=== PATIENT | male | born 1955 | race Caucasian/White ===

== ENCOUNTER 2019-05-06 14:51 | Emergency (ER) | payer OTHER ==
[~2019-05-06] VITALS: Ht 162.6 cm; Wt 113.4 kg
[2019-05-06] MEDS ORDERED: GABA400 PO (15:45)
[2019-05-06] MEDS ORDERED: BUSP10 PO (15:45)
[2019-05-06] MEDS ORDERED: AMLO10 PO (15:45)
[2019-05-06] MEDS ORDERED: PRAZ2 PO (15:46)
[2019-05-06] MEDS ORDERED: MELO7.5 PO (15:46)
[2019-05-06] MEDS ORDERED: HYDR1TAB94 PO (15:46)
[2019-05-06] MEDS ORDERED: TRAZ100 PO (15:47)
[2019-05-06] MEDS ORDERED: SERT100 PO (15:47)
== END 2019-05-06 17:14 | disposition home or self-care (01) ==
LOC: ER 14:51
DX: M54.40 Lumbago with sciatica, unspecified side (principal); F32.9 Major depressive disorder, single episode, unspecified; I10 Essential (primary) hypertension; M19.90 Unspecified osteoarthritis, unspecified site; G47.30 Sleep apnea, unspecified; G47.00 Insomnia, unspecified; Z86.79 Personal history of other diseases of the circulatory system; Z91.030 Bee allergy status; Z91.038 Other insect allergy status
CPT/HCPCS: 93005; 93010; 96372; 99283-25; J1885

== ENCOUNTER 2020-03-28 23:24 | Emergency (ER) | payer OTHER ==
[~2020-03-28] VITALS: Ht 162.6 cm; Wt 117.9 kg
[~2020-03-28 23:24] MED LIST: AMLO10 PO; BUSP10 PO; GABA400 PO; HYDR1TAB94 PO; MELO7.5 PO; PRAZ2 PO; SERT100 PO; TRAZ100 PO
== END 2020-03-29 01:20 | disposition left against medical advice (07) ==
LOC: ER 23:24
DX: Z53.21 Procedure and treatment not carried out due to patient leaving prior to being seen by health care provider (principal)

== ENCOUNTER 2022-03-06 03:44 | Emergency (ER) | payer OTHER ==
[~2022-03-06] VITALS: Ht 162.6 cm; Wt 127.0 kg
[2022-03-06] MEDS ORDERED: POTA10T PO (04:08)
[2022-03-06] MEDS ORDERED: PRAZ2 PO (04:09)
[2022-03-06] MEDS ORDERED: CYCL10 PO (04:09)
[2022-03-06] MEDS ORDERED: GABA400 PO (04:09)
[2022-03-06] MEDS ORDERED: FURO20 PO (04:10)
== END 2022-03-06 04:41 | disposition home or self-care (01) ==
LOC: ER 03:44
DX: R04.0 Epistaxis (principal); I87.8 Other specified disorders of veins; I10 Essential (primary) hypertension; Z88.8 Allergy status to other drugs, medicaments and biological substances; Z91.030 Bee allergy status; Z79.899 Other long term (current) drug therapy
CPT/HCPCS: A9270

== ENCOUNTER 2022-07-17 18:28 | Inpatient (IN) | payer OTHER ==
[~2022-07-17] VITALS: Ht 162.6 cm; Wt 147.9 kg
[~2022-07-17 18:28] MED LIST changes: +CYCL10 PO; +FURO20 PO; +POTA10T PO
[2022-07-17 19:04] LABS: BASOPHILS ABSOLUTE AUTO 0.04 K/mm3 (0.00-0.23); BASOPHILS PERCENT AUTO 0 % (0-2); EOSINOPHILS ABSOLUTE AUTO 0.17 K/mm3 (0.00-0.68); EOSINOPHILS PERCENT AUTO 2 % (0-6); Hematocrit 41.8 % (37.0-53.0); Hemoglobin 13.6 g/dL (13.5-17.5); IMMATURE GRAN ABSOLUTE AUTO 0.02 K/mm3 (0.00-0.10); IMMATURE GRAN PERCENT AUTO 0 % (0-1); LYMPHOCYTES ABSOLUTE AUTO 1.38 K/mm3 (0.84-5.20); LYMPHOCYTES PERCENT AUTO 15 % (21-46); MONOCYTES ABSOLUTE AUTO 0.95 K/mm3 (0.16-1.47); MONOCYTES PERCENT AUTO 10 % (4-13); Mean Corpuscular HGB 29.8 pg (26.0-34.0); Mean Corpuscular HGB Conc 32.5 g/dL (31.5-36.5); Mean Corpuscular Volume 92 fL (80-100); Mean Platelet Volume 11.7 fL (9.1-12.4); NEUTROPHILS ABSOLUTE AUTO 6.62 K/mm3 (1.96-9.15); NEUTROPHILS PERCENT AUTO 72 % (41-73); Platelet Count 158 K/mm3 (150-400); RDW Coefficient Variation 14.4 % (11.7-14.2); Red Blood Cell Count 4.56 M/mm3 (4.30-5.90); White Blood Cell Count 9.18 K/mm3 (4.00-11.30)
[2022-07-17 19:21] LABS: Albumin, Blood 3.2 g/dL (3.4-5.0); Albumin/Globulin Ratio 0.8 (0.8-1.8); Bilirubin, Total 0.8 mg/dL (0.1-1.0); Bun/Creatinine Ratio 16.6 (12.0-20.0); Calcium, Blood 9.2 mg/dL (8.5-10.1); Creatinine, Blood 0.78 mg/dL (0.60-1.20); Globulin, Blood 4.1 g/dL (2.2-4.0); Potassium, Blood 4.5 mmol/L (3.5-5.5); Total Protein, Blood 7.3 g/dL (6.4-8.2)
[2022-07-17 21:49] LABS: Influenza A, PCR NEGATIVE (NEGATIVE); Influenza B, PCR NEGATIVE (NEGATIVE); Resp Syncytial Virus, PCR NEGATIVE (NEGATIVE); SARS-Cov-2 (COVID-19) PCR, MMC NEGATIVE (NEGATIVE)
--- NOTE | 2022-07-18 06:06 | NUR ---
SHIFT SUMMARY A&O - NEW ADMISSION IN NIGHT- PT ANXIOUS AT ADMISSION- PT WAS ON 3L NC WHICH HIS HOME O2- RT WORKED WITH GETTING A GOOD SEAL ON CPAP- PT CURRENTLY ON 13L FED INTO THE CPAP- PT ON CONTINOUS PULSE OX- PT SATS STAY WNL WITH NC WHEN AWAKE- PT ABLE TO USE URINAL IN BED OR SET UP TO SIDE OF BED TO USE URINAL-
[2022-07-18 07:05] LABS: BASOPHILS ABSOLUTE AUTO 0.01 K/mm3 (0.00-0.23); BASOPHILS PERCENT AUTO 0 % (0-2); EOSINOPHILS PERCENT AUTO 0 % (0-6); Hematocrit 44.1 % (37.0-53.0); Hemoglobin 13.8 g/dL (13.5-17.5); IMMATURE GRAN ABSOLUTE AUTO 0.02 K/mm3 (0.00-0.10); IMMATURE GRAN PERCENT AUTO 0 % (0-1); LYMPHOCYTES ABSOLUTE AUTO 0.61 K/mm3 (0.84-5.20); LYMPHOCYTES PERCENT AUTO 12 % (21-46); MONOCYTES ABSOLUTE AUTO 0.11 K/mm3 (0.16-1.47); MONOCYTES PERCENT AUTO 2 % (4-13); Mean Corpuscular HGB 28.6 pg (26.0-34.0); Mean Corpuscular HGB Conc 31.3 g/dL (31.5-36.5); Mean Corpuscular Volume 92 fL (80-100); Mean Platelet Volume 11.8 fL (9.1-12.4); NEUTROPHILS ABSOLUTE AUTO 4.52 K/mm3 (1.96-9.15); NEUTROPHILS PERCENT AUTO 86 % (41-73); Platelet Count 175 K/mm3 (150-400); RDW Coefficient Variation 14.3 % (11.7-14.2); RDW Standard Deviation 47.8 fL (35.1-46.3); Red Blood Cell Count 4.82 M/mm3 (4.30-5.90); White Blood Cell Count 5.27 K/mm3 (4.00-11.30)
[2022-07-18 07:28] LABS: Albumin, Blood 2.8 g/dL (3.4-5.0); Albumin/Globulin Ratio 0.7 (0.8-1.8); Bilirubin, Total 0.7 mg/dL (0.1-1.0); Calcium, Blood 9.1 mg/dL (8.5-10.1); Creatinine, Blood 0.82 mg/dL (0.60-1.20); Globulin, Blood 4.1 g/dL (2.2-4.0); Potassium, Blood 4.5 mmol/L (3.5-5.5); Total Protein, Blood 6.9 g/dL (6.4-8.2)
--- NOTE | 2022-07-18 18:52 | NUR ---
END OF SHIFT SUMMARY: PATIENT REPORTED LOWER BACK AND HIP PAIN. PATIENT PROVIDED WITH RECLINER. PATIENT DENIED NEED FOR FURTHER INTERVENTION. PATIENT REPORTED THAT HIS BREATHING WAS GREATLY IMPROVED COMPARED TO YESTERDAY. PATIENT ON 3-4L VIA NC. SPO2 FROM 90-94%. PATIENT DENIED SHORTNESS OF BREATH AT REST. MINIMAL SHORTNESS OF BREATH NOTED WITH AMBULATION. PATIENT UP TO THE RECLINER AND SHOWER TODAY. PATIENT CONTINUED TO PRODUCE CLEAR, YELLOW URINE THROUGHOUT THE SHIFT.
[2022-07-19 04:40] LABS: Base Excess Venous 16.8 mmol/L; Bicarbonate Venous 37.4 mmol/L (24.0-30.0); PCO2 Venous 67.9 mmHg (38-42)
[2022-07-19 04:58] LABS: Albumin, Blood 2.8 g/dL (3.4-5.0); Albumin/Globulin Ratio 0.7 (0.8-1.8); Bilirubin, Total 0.3 mg/dL (0.1-1.0); Bun/Creatinine Ratio 33.3 (12.0-20.0); Calcium, Blood 8.8 mg/dL (8.5-10.1); Creatinine, Blood 0.96 mg/dL (0.60-1.20); Globulin, Blood 3.9 g/dL (2.2-4.0); Magnesium, Blood 2.1 mg/dL (1.6-2.4); Potassium, Blood 4.6 mmol/L (3.5-5.5); Total Protein, Blood 6.7 g/dL (6.4-8.2)
--- NOTE | 2022-07-19 05:09 | NUR ---
SHIFT SUMMARY PT A&O X 4, PT UP TO CHAIR ALL NIGHT, PT REFUSED WITH RT TO LAY IN BED, PT REPORTS HE IS MORE COMFORTABLE SITTING UP BECAUSE OF HIS SIZE- PT SLEPT IN RECLINER WITH BILAT LEGS ELEVATED- PT ON 4L NC, SATS WNL PT USES URINAL WITHOUT PROBLEMS
--- NOTE | 2022-07-19 16:28 | NUR ---
DAYSHIFT SUMMARY Patient OOB sitting in recliner all day, declined to go on walk w/ staff. Saturations stable on 4lpm oxygen NC, continuous pulse ox ordered. Occasional desats, patients not wearing NC. Patient upset, stated he was told he has a poor prognosis, family calling wanting updates on his prognosis. MD told RN that patient needed to needed to use CPAP, take medications, and lose weight to control CHF s/sx and improve quality of life. Patient receptive to education, but then continued to take NC off. Flight Engineer Manager consulted for patient education. Patient stated he wanted RN to provide education on CPAP, medications, and diet to prepare for discharge. No other concerns at this time, will continue plan of care.
--- NOTE | 2022-07-19 17:45 | NUR ---
Pt. is sitting up in a chair and welcomes my visit. Pt. is unsettled by the impact of his breathing condition, and verbalized that he has considered at times giving up. Pt.is quick to verbalize that he feels better at present. Explore matters of zahraa and belief. Pt. displays evidence of trust. Prayed with Pt. Pt. verbalized gratitude for the spiritual care visit.
[2022-07-20 04:30] LABS: Base Excess Venous 21.7 mmol/L; Bicarbonate Venous 41.9 mmol/L (24.0-30.0); PCO2 Venous 70.3 mmHg (38-42); pH Blood Venous 7.43 (7.34-7.37)
[2022-07-20 05:03] LABS: Bun/Creatinine Ratio 31.4 (12.0-20.0); Calcium, Blood 9.1 mg/dL (8.5-10.1); Creatinine, Blood 0.96 mg/dL (0.60-1.20); Potassium, Blood 3.9 mmol/L (3.5-5.5)
--- NOTE | 2022-07-20 06:14 | NUR ---
Shift Summary Pt mentioned tonight that it's too difficult to track his medications so he takes them all at night, will pass this info to day nurse. Pt on 3-4 L O2 NC to keep O2>90%. He tried to sleep with CPAP mask tonight, O2 kept desaturating down to low 80's to mid 70's and then back up to 88-90. This cycle repeated all through the night. Called RT for a consult, checked mask fit and turned up O2 without any improvement. Once he woke up in the AM and switched to NC his O2 sat > 92% even while dozing off. Current sat 93% on 3L. No acute events, no C/O pain, pleasant and cooperative with care.
--- NOTE | 2022-07-20 18:34 | NUR ---
SHIFT SUMMARY: NO ACUTE EVENTS. TELEMETRY SHOWED SR-ST 90-104 WITH FREQUENT PVC'S, USUALLY WHEN AMBULATING (HR DOCUMENTED 40-50'S PER OXIMETRY MONITOR, BUT SINCE HR IS IRREGULAR, NOT PICKING UP ALL BEATS). BLE EDEMATOUS AND TIGHT. O2 @ 3 L/MIN NC (BASELINE) WITH BIPAP WHILE SLEEPING. USING URINAL INDEPENDENTLY, GETTING UP TO BR WITH 1 PERSON ASSIST AND FWW, GAIT UNSTEADY. DRESSING CHANGED ON VENOUS ULCER ON L POSTERIOR CALF. WORKED WITH PHYSICAL THERAPY. SAT UP IN RECLINER ALL SHIFT.
[2022-07-21 04:44] LABS: PCO2 Venous 59.8 mmHg (38-42); pH Blood Venous 7.48 (7.34-7.37)
[2022-07-21 04:45] LABS: Base Excess Venous 20.7 mmol/L; Bicarbonate Venous 41.3 mmol/L (24.0-30.0)
[2022-07-21 05:35] LABS: Bun/Creatinine Ratio 33.7 (12.0-20.0); Calcium, Blood 8.4 mg/dL (8.5-10.1); Creatinine, Blood 0.8 mg/dL (0.60-1.20); Potassium, Blood 3.9 mmol/L (3.5-5.5)
--- NOTE | 2022-07-21 07:16 | NUR ---
Shift Summary Pt wore CPAP tonight and had an anxiety attack early in the evening feeling like he was choking due to the mask. I called Dr. Portillo who ordered PRN Ativan, but when I went back into the room pt was asleep with CPAP mask on. Pt continued to have episodes of desaturation, I called RT who was able to adjust the mask and reduce leakage. Desaturations still continued t/o the night but they were less frequent. I did need to raise the CPAP O2 to 6L to reduce frequency of desaturations. Pt states his mask at home is terrible, passed this info to day nurse because pt needs OUTPT CPAP. No C/O pain or discomfort, pt slept well T/O the night. No acute events, pleasant and cooperative with care.
--- NOTE | 2022-07-21 17:34 | NUR ---
SHIFT SUMMARY NO ACUTE CHANGES DURING SHIFT. PT ALERT AND ORIENTED, CALLS APPROPRIATELY. PT IN CHAIR THROUGHOUT DAY. PT AMBULATED WITH FWW AROUND UNIT TODAY. PT REMAINS ON 2-3L NC. DRESSING IN PLACE TO LLE, CDI. WILL CONTINUE TO MONITOR. CALL LIGHT WITHIN REACH.
[2022-07-22 04:48] LABS: Base Excess Venous 18.6 mmol/L; Bicarbonate Venous 39.5 mmol/L (24.0-30.0); PCO2 Venous 58.9 mmHg (38-42); pH Blood Venous 7.47 (7.34-7.37)
--- NOTE | 2022-07-22 05:12 | NUR ---
SUMMARY: PATIENT ON BIPAP MOST OF NIGHT. PATIENT AMBULATES ONE PERSON ASSIST FROM BED TO CHAIR. VOIDS IN URINAL. ON 1-2L NC WHILE OFF OF BIPAP. PATIENT HAD STUFFY/ BLOODY NOSE WHILE WEARING BIPAP. GAVE PRN NASAL SPRAYS FOR CONGESTION AND MOISTURE. BIPAP MASK HAD A LEAK OVERNIGHT RT CAME TO BEDSIDE AND APPLIED A GEL BARRIER FOR A BETTER SEAL ON MASK. PATIENT ON CONT PULSE OX MONITOR. RT INCREASED O2 IN BIPAP TO 8L PATIENT WAS DESATTING WHILE SLEEPING. PATIENT VERBALIZED THAT HE DOESN'T KNOW HOW WELL HE WILL MANAGE A BIPAP AT HOME WHILE NURSE AND RT WERE TROUBLE SHOOTING LEAK IN BIPAP MASK. ENCOURAGED PATIENT TO ENSURE HE HAS A GOOD SEAL ON MASK, LISTEN FOR LOUDER BLOWING SOUNDS OR LEAKS WITH AIR BLOWING IN HIS EYES.
[2022-07-22 05:59] LABS: Bun/Creatinine Ratio 25.2 (12.0-20.0); Creatinine, Blood 0.75 mg/dL (0.60-1.20); Potassium, Blood 3.8 mmol/L (3.5-5.5)
--- NOTE | 2022-07-22 17:17 | NUR ---
SHIFT SUMMARY NO ACUTE CHANGES DURING SHIFT. PT ALERT AND ORIENTED, CALLS APPROPRIATELY. PT REMAINS ON 2L, SPO2 >90%. PT MEDICATED WITH PRN PAIN MEDS X 2, PT STATES MEDICATION EFFECTIVE. PT UP TO CHAIR THROUGHOUT DAY. WILL CONTINUE TO MONITOR. CALL LIGHT WITHIN REACH
--- NOTE | 2022-07-23 05:32 | NUR ---
SUMMARY: PATIENT ALERT AND ORIENTED X4. VSS. PATIENT WORE BIPAP OVERNIGHT TITRATED O2 TO KEEP SATS OVER 88%. PATIENT DOES FINE ON NC 2L WHILE AWAKE BUT NEEDS BIPAP TO SLEEP, TONIGHT O2 BLEED IN WAS UP TO 11L TO KEEP O2 IN HIGH 80S. PATIENT TAKES MASK OFF FREQUENTLY THROUGHOUT NIGHT BECAUSE HE FEELS ANXIOUS WITH THE PRESSURE, HE WILL SAY HE NEEDS A BREAK AND PUT HIS NC ON BUT WILL THEN FALL BACK ASLEEP AND NOT PUT BIPAP BACK ON. EDUCATION PROVIDED AND FREQUENT ROUNDING TO ENSURE COMPLIANCE WITH BIPAP. PRN PAIN MEDS GIVEN. PATIENT SLEPT IN CHAIR TO MAKE HIM MORE COMFORTABLE HE HAS PROBLEMS GETTING UP TO THE EDGE OF THE BED IN TIME TO USE THE URINAL AT NIGHT.
--- NOTE | 2022-07-23 17:04 | NUR ---
SHIFT SUMMARY; PATIENT VERY ANXIOUS THROUGHOUT DAY. STARTED PAITENT ON BUSPAR 5MG AND ALSO ORDER FOR 0.5MG ATIVAN ONE TIME ORDER. MARISOL COMPLAINS OF ANXIETY CAUSED BY THE BEEPING OF THE LOW SAT MONITOR. BCT EDUCATED ON REASON FOR BEEPING. HE VERBALIZED UNDERSTANDING HOWEVER PATIENT IS NOTED TO TAKE HIS O2 OFF WHEN HE WENT TO THE BATHROOM. HIS SATS DROPPED TO 78% AN THE RN FOUND HIM IN BATHROOM AND PLACED IT ON HIS FACE, HE SAT IN BATHROOM UNTIL HE RECOVERED ENOUGH TO GET BACK TO THE RECLINER CHAIR IN HIS ROOM. CLOSE MONITORING OF THIS PAITENT DURING DAY WITH CONSTANT REMINDERS IS NEEDED TO KEEP PAITENTS SATS IN THE >90% RANGE. DECISION TO INCREASE PATIENTS O2 TO 3 LITERS DID HELP KEEP SATS ABOVE 93% FOR LONGER PERIODS OF TIME. PATIENT VERY FRUSTRATED THIS JUAN CARLOS PRIOR TO SHIFT CHANGE AND SAYS TO LET MD KNOW HE WANTS TO GO HOME TOMORROW. THIS RN EDUCATES PATIENT ABOUT SEVERITY OF HIS SATS GOING BELOW THE 88% FOR EXTENDED PERIODS OF TIME.
--- NOTE | 2022-07-24 04:25 | NUR ---
SUMMARY: PATIENT O2 DEMAND HAS BEEN INCREASING OVER THE PAST TWO NIGHTS. PATIENT WORE HIS BIPAP MASK FOR ALMOST THE WHOLE SHIFT BUT WAS OCCASIONALLY DESATTING INTO THE 70S. WORKED WITH RT TO ENSURE BIPAP MASK WAS FITTING CORRECTLY WITHOUT ANY LEAKS. PATIENT O2 BLEED WAS 13L MOST OF THE NIGHT TO KEEP O2 88-92%. RESPIRATORY CAME AND INCREASED PRESSURE AT ONE POINT ON THE BIPAP PATIENT WAS FREQUENTLY DESATTING. PATIENT AOX4. VOIDS IN URINAL, CALLS APPROPRIATELY. PATIENT IS A STANDBY ASSIST TO AMBULATE SHORT DISTANCES IN THE ROOM.
[2022-07-24 06:15] LABS: Calcium, Blood 9.1 mg/dL (8.5-10.1); Creatinine, Blood 0.92 mg/dL (0.60-1.20); Potassium, Blood 4.1 mmol/L (3.5-5.5)
[2022-07-24] MEDS ORDERED: TORSE20 PO (13:47)
[2022-07-24] MEDS ORDERED: ASPI81CH PO (13:47)
[2022-07-24] MEDS ORDERED: TRAZ100 PO (13:48)
[2022-07-24] MEDS ORDERED: Norco 10-325 T1 EACH PO (13:48)
[2022-07-24] MEDS ORDERED: JARDIANCE10 MG PO (13:49)
[2022-07-24] MEDS ORDERED: ATOR40TA PO (13:49)
[2022-07-24] MEDS ORDERED: METO50ER PO (13:50)
[2022-07-24] MEDS ORDERED: IPRAT-ALBUT 0.5-3 ML INH (13:50)
[2022-07-24] MEDS ORDERED: SPIR25 PO (13:51)
[2022-07-24] MEDS ORDERED: ENTRESTO 97 MG1 EACH PO (13:51)
--- NOTE | 2022-07-24 16:01 | NUR ---
PATIENT DISCHARGED TO HOME. SPOUSE BRINGS O2 TO ROOM FOR PATIENT TO USE ON WAY HOME. LEAVES [facility] IN CHART AND IT IS PROVIDED TO PATIENT AT MO. MEDICATIONS FAXED TO [facility]. KRYSTIAN ROBBINS TRILOGY TO BEDSIDE AND FITS IT TO PATIENT FACE PRIOR TO PATIENT LEAVING.
== END 2022-07-24 14:55 | disposition home or self-care (01) | DRG 291 ==
LOC: ER 18:28 → MEDS 23:07
PROVIDERS: Emergency Medicine; Internal Medicine; Student in an Organized Health Care Education/Training Program; ADMIT Internal Medicine
PROC: 5A09357 Assistance with Respiratory Ventilation, Less than 24 Consecutive Hours, Continuous Positive Airway Pressure (ICD-10-PCS; principal; 2022-07-19)
DX: I11.0 Hypertensive heart disease with heart failure (principal); I50.41 Acute combined systolic (congestive) and diastolic (congestive) heart failure; J96.01 Acute respiratory failure with hypoxia; J96.02 Acute respiratory failure with hypercapnia; J44.1 Chronic obstructive pulmonary disease with (acute) exacerbation; Z68.41 Body mass index [BMI] 40.0-44.9, adult; M35.1 Other overlap syndromes; I16.1 Hypertensive emergency; E66.2 Morbid (severe) obesity with alveolar hypoventilation; I42.9 Cardiomyopathy, unspecified; G89.29 Other chronic pain; E11.9 Type 2 diabetes mellitus without complications; Z74.09 Other reduced mobility; Z20.822 Contact with and (suspected) exposure to COVID-19; R00.1 Bradycardia, unspecified; M19.90 Unspecified osteoarthritis, unspecified site; G47.00 Insomnia, unspecified; F32.A Depression, unspecified; M25.559 Pain in unspecified hip; M54.40 Lumbago with sciatica, unspecified side; K21.9 Gastro-esophageal reflux disease without esophagitis; I87.8 Other specified disorders of veins; Z96.649 Presence of unspecified artificial hip joint; Z91.038 Other insect allergy status; Z79.899 Other long term (current) drug therapy; Z79.891 Long term (current) use of opiate analgesic; Z88.8 Allergy status to other drugs, medicaments and biological substances; Z79.51 Long term (current) use of inhaled steroids; Z98.890 Other specified postprocedural states; Z99.81 Dependence on supplemental oxygen; Z79.01 Long term (current) use of anticoagulants
CPT/HCPCS: 0241U; 36415; 71046; 80048; 80053; 82803; 83036; 83735; 83880; 84484; 85025; 93005; 93010; 93306; 94640; 94660; 94664; 94667; 94762; 96374; 96375; 97110; 97116; 97162; 97530; 98960; 99285-25; A9270; J1650; J1940; J2405; J2930; J7512

== ENCOUNTER → 2022-10-08 | Outpatient (CLI) | payer MEDICARE, OTHER ==
[~2022-10-08] MED LIST changes: +ASPI81CH PO; +ATOR40TA PO; +ENTRESTO 97 MG1 EACH PO; +IPRAT-ALBUT 0.5-3 ML INH; +JARDIANCE10 MG PO; +METO50ER PO; +Norco 10-325 T1 EACH PO; +SPIR25 PO; +TORSE20 PO
[2022-10-10 12:21] LABS: Creatinine, Urine Random 94.1 mg/dL (27.00-270.00)
[2022-10-10 12:23] LABS: Microalb/Creat Ratio UR, Rand 6.833 mg/g (0.000-30.000); Microalbumin, Random Urine 6.43 mg/L (0.000-20.000)
== END | disposition home or self-care (01) ==
LOC: LAB SHORT 13:30 → LAB 13:30
PROVIDERS: Physician Assistant
DX: E11.9 Type 2 diabetes mellitus without complications (principal)
CPT/HCPCS: 82043; 82570

== ENCOUNTER 2024-06-27 14:48 | Emergency (ER) | payer OTHER ==
[~2024-06-27] VITALS: Ht 162.6 cm; Wt 129.3 kg
[2024-06-27 15:46] LABS: BASOPHILS ABSOLUTE AUTO 0.05 K/mm3 (0.00-0.23); BASOPHILS PERCENT AUTO 1 % (0-2); EOSINOPHILS ABSOLUTE AUTO 0.25 K/mm3 (0.00-0.68); EOSINOPHILS PERCENT AUTO 3 % (0-6); Hematocrit 41.7 % (37.0-53.0); Hemoglobin 14.4 g/dL (13.5-17.5); IMMATURE GRAN ABSOLUTE AUTO 0.04 K/mm3 (0.00-0.10); IMMATURE GRAN PERCENT AUTO 1 % (0-1); LYMPHOCYTES ABSOLUTE AUTO 2.13 K/mm3 (0.84-5.20); LYMPHOCYTES PERCENT AUTO 24 % (21-46); MONOCYTES ABSOLUTE AUTO 0.87 K/mm3 (0.16-1.47); MONOCYTES PERCENT AUTO 10 % (4-13); Mean Corpuscular HGB 30.8 pg (26.0-34.0); Mean Corpuscular HGB Conc 34.5 g/dL (31.5-36.5); Mean Corpuscular Volume 89 fL (80-100); Mean Platelet Volume 11.8 fL (9.1-12.4); NEUTROPHILS ABSOLUTE AUTO 5.49 K/mm3 (1.96-9.15); NEUTROPHILS PERCENT AUTO 62 % (41-73); Platelet Count 176 K/mm3 (150-400); RDW Coefficient Variation 13.2 % (11.7-14.2); Red Blood Cell Count 4.67 M/mm3 (4.30-5.90); White Blood Cell Count 8.83 K/mm3 (4.00-11.30)
[2024-06-27 16:09] LABS: Albumin, Blood 3.4 g/dL (3.4-5.0); Albumin/Globulin Ratio 0.8 (0.8-1.8); Bilirubin, Total 0.5 mg/dL (0.1-1.0); Bun/Creatinine Ratio 25.9 (12.0-20.0); Calcium, Blood 9.1 mg/dL (8.5-10.1); Creatinine, Blood 1.12 mg/dL (0.60-1.20); Potassium, Blood 3.9 mmol/L (3.5-5.5); Total Protein, Blood 7.4 g/dL (6.4-8.2)
[2024-06-27 18:46] VITALS: BP 144/96
== END 2024-06-27 19:10 | disposition home or self-care (01) ==
LOC: ER 14:48
PROVIDERS: Physician Assistant
DX: R06.00 Dyspnea, unspecified (principal); J44.9 Chronic obstructive pulmonary disease, unspecified; I11.0 Hypertensive heart disease with heart failure; I50.40 Unspecified combined systolic (congestive) and diastolic (congestive) heart failure; E66.01 Morbid (severe) obesity due to excess calories; Z91.030 Bee allergy status; Z79.82 Long term (current) use of aspirin; Z79.899 Other long term (current) drug therapy; Z88.8 Allergy status to other drugs, medicaments and biological substances
CPT/HCPCS: 71046; 80053; 84484; 85025; 93005; 93010; 99285-25

== ENCOUNTER 2025-08-20 10:26 | Emergency (ER) | payer OTHER ==
[~2025-08-20] VITALS: Ht 162.6 cm; Wt 124.7 kg
[2025-08-20 12:00] VITALS: BP 121/80
== END 2025-08-20 12:12 | disposition left against medical advice (07) ==
LOC: ER 10:26
DX: R52 Pain, unspecified (principal); Z53.21 Procedure and treatment not carried out due to patient leaving prior to being seen by health care provider
CPT/HCPCS: 93005; 93010